=== PATIENT | female | born 1995 | race Caucasian/White ===

== ENCOUNTER 2018-01-22 19:32 | Emergency (ER) | payer SELFPAY ==
[~2018-01-22] VITALS: Ht 162.6 cm; Wt 60.0 kg
[2018-01-22] MEDS ORDERED: ACETAMINOPHEN 500MG TABLET PO ONE (21:15)
[2018-01-22] MEDS ORDERED: KETOROLAC 60MG/2ML VIAL IM ONE (22:45)
[2018-01-22 23:17] VITALS: BP 115/62
== END 2018-01-22 23:18 | disposition home or self-care (01) ==
LOC: ER 19:32
DX: S09.8XXA Other specified injuries of head, initial encounter (principal); F32.9 Major depressive disorder, single episode, unspecified; F41.9 Anxiety disorder, unspecified; V49.9XXA Car occupant (driver) (passenger) injured in unspecified traffic accident, initial encounter; Y93.89 Activity, other specified; Y92.410 Unspecified street and highway as the place of occurrence of the external cause; Z91.040 Latex allergy status
CPT/HCPCS: 70450; 81025; 96372; 99284; J1885